=== PATIENT | male | born 2000 | race Two or more races ===

== ENCOUNTER 2024-04-06 15:30 | Emergency (ER) | payer OTHER ==
[~2024-04-06] VITALS: Ht 193 cm; Wt 127.0 kg
[2024-04-06 16:27] VITALS: BP 163/132; PULSE 99; RESP 16; TEMP 97; O2SAT 96
[2024-04-06] MEDS: KETOROLAC TROMETH 60MG/2ML VIAL IM ONE (16:47)
[2024-04-06] MEDS ORDERED: IBUP-1456 PO (16:53)
[2024-04-06] MEDS ORDERED: METH-1182 PO (16:53)
== END 2024-04-06 16:58 | disposition home or self-care (01) ==
LOC: ER 15:30
DX: M54.41 Lumbago with sciatica, right side (principal); E66.01 Morbid (severe) obesity due to excess calories; Z68.34 Body mass index [BMI] 34.0-34.9, adult; Z79.899 Other long term (current) drug therapy
CPT/HCPCS: 96372; 99283; J1885

== ENCOUNTER 2024-05-25 13:15 | Emergency (ER) | payer MEDICAID, OTHER ==
[~2024-05-25] VITALS: Ht 193 cm; Wt 130.3 kg
[~2024-05-25 13:15] MED LIST: IBUP-1456 PO; METH-1182 PO
[2024-05-25 14:35] VITALS: BP 142/102; PULSE 91; RESP 16; TEMP 98.1; O2SAT 98
[2024-05-25] MEDS: KETOROLAC TROMETH 60MG/2ML VIAL IM ONE (14:45)
[2024-05-25] MEDS ORDERED: PRED20TA2 PO (14:57)
== END 2024-05-25 15:07 | disposition home or self-care (01) ==
LOC: ER 13:15
DX: M54.41 Lumbago with sciatica, right side (principal); E66.01 Morbid (severe) obesity due to excess calories; Z68.35 Body mass index [BMI] 35.0-35.9, adult; Z79.899 Other long term (current) drug therapy
CPT/HCPCS: 96372; 99283; J1885

== ENCOUNTER 2024-07-18 07:12 | Emergency (ER) | payer MEDICAID ==
[~2024-07-18] VITALS: Ht 193 cm; Wt 127.7 kg
[~2024-07-18 07:12] MED LIST changes: +PRED20TA2 PO
[2024-07-18 08:05] VITALS: BP 143/87; PULSE 89; RESP 16; O2SAT 97
[2024-07-18] MEDS ORDERED: IBUP-1455 PO (08:15)
[2024-07-18] MEDS ORDERED: HYDR-4798 PO (08:15)
[2024-07-18 08:19] VITALS: TEMP 98.2
[2024-07-18] MEDS: IBUPROFEN 800 MG TAB PO ONE (08:19)
== END 2024-07-18 08:45 | disposition home or self-care (01) ==
LOC: ER 07:12
DX: S82.62XA Displaced fracture of lateral malleolus of left fibula, initial encounter for closed fracture (principal); Z79.899 Other long term (current) drug therapy; X50.1XXA Overexertion from prolonged static or awkward postures, initial encounter; Y93.67 Activity, basketball; Y92.89 Other specified places as the place of occurrence of the external cause; Y99.8 Other external cause status
CPT/HCPCS: 29515; 73610

== ENCOUNTER 2024-07-26 10:27 | Emergency (ER) | payer MEDICAID ==
[~2024-07-26] VITALS: Ht 193 cm; Wt 127.2 kg
[~2024-07-26 10:27] MED LIST changes: +HYDR-4798 PO; +IBUP-1455 PO
[2024-07-26 10:43] VITALS: BP 123/73; PULSE 115; RESP 18; O2SAT 96
[2024-07-26] MEDS ORDERED: CEPH500C PO (12:18)
== END 2024-07-26 12:24 | disposition home or self-care (01) ==
LOC: ER 10:27
DX: S90.522A Blister (nonthermal), left ankle, initial encounter (principal); Z87.81 Personal history of (healed) traumatic fracture; Z79.899 Other long term (current) drug therapy; X58.XXXA Exposure to other specified factors, initial encounter; Y93.89 Activity, other specified; Y92.89 Other specified places as the place of occurrence of the external cause; Y99.8 Other external cause status